=== PATIENT | male | born 1985 | race Caucasian/White ===

== ENCOUNTER 2023-08-19 10:15 | Outpatient (AMB) | payer MEDICAID, SELFPAY ==
--- NOTE | 2023-08-19 10:12 | AM.OFFWIN_ITS ---
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 Pt has not seen a doctor for years now. He does endorse weight gain due to sedentary lifestyle. There is a strong family h/o T2DM. 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 PFSH Social History Patient Tobacco Use Status: Never used Tobacco Physical Exam Vital Signs: Last Vital Signs Temp 97.2 F 08/19/23 10:17 Pulse 75 08/19/23 10:17 BP 120/90 H 08/19/23 10:17 Pulse Ox 96 08/19/23 10:17 Oxygen Delivery Method Room Air 08/19/23 10:17 BMI result Body Mass Index 40.7 Const General: comfortable and no acute distress Nutritional Appearance: obese morbidly obese Orientation/consciousness: patient oriented x3 Neuro General: patient oriented x3, gait normal and moves all extremities Psych Speech and movement: Normal speech and movement present Results AMB Hemoglobin A1c AMB Hemoglobin A1c 5.3 % Last Edit by Harleen Morgan CMA on 08/19/23 10:46 Results Reviewed Results Reviewed: Laboratory Last Values Hgb A1c (Clinic) 5.3 % (4.0-6.0) 08/19/23 10:40 Assessment & Plan Assessment & Plan (1) Peripheral neuropathy: Code(s): G62.9 - Polyneuropathy, unspecified Qualifiers: Peripheral neuropathy type: idiopathic neuropathy, unspecified Qualified Code(s): G60.9 - Hereditary and idiopathic neuropathy, unspecified Plan: - A1C 5% - Recommended Vitamins Supp OTC (such as Vitamin D3, Folic, C) - F/U with new PCP. Orders: Orders AMB Hemoglobin A1c Today Z13.1 - Encounter for screening for diabetes mellitus Coding Level of Care Code New Pt Level 4 (82709) Diagnoses Idiopathic peripheral neuropathy G60.9 Peripheral neuropathy type: idiopathic neuropathy, unspecified Time Spent (min) 20
[2023-08-19 10:17] VITALS: BP 120/90; PULSE 75; TEMP 36.2; O2SAT 96; BMI 40.7
== END 2023-08-19 11:12 | disposition home or self-care (01) ==
PROVIDERS: Visit Provider Nurse Practitioner Family
DX: G60.9 Hereditary and idiopathic neuropathy, unspecified (principal); Z13.1 Encounter for screening for diabetes mellitus
CPT/HCPCS: 83036; 99204